=== PATIENT | female | born 1935 | race Caucasian/White ===

== ENCOUNTER 2016-09-11 08:42 | Outpatient (CLI) | payer OTHER, BC ==
[~2016-09-11 08:42] MED LIST: ATENOLOL50 MG PO; CLOPIDOGREL75 MG PO; COUMADIN1 MG PO; LISINOPRIL10 MG PO; VYTORIN1 TA1 PO
--- NOTE | 2016-09-11 11:28 | DIAGNOSTIC IMAGING REPORT ---
PROCEDURE: US KIDNEY/RENAL COMPLETE INDICATION: VAGINAL PROLAPSE,URINARY RETENTION TECHNIQUE: Transabdominal scans of the kidneys with calculation of resistive indices. Prevoid and postvoid bladder volumes were obtained. COMPARISON: CT abdomen/pelvis 03/20/2015. FINDINGS: RIGHT: Kidney measures 10.5 x 5 x 4.9 cm. Cortex measures 1 cm. No calculi or hydronephrosis. Limited of renal perfusion seen. Midpole resistive index is 0.64. LEFT: Kidney measures 11.1 x 5.5 x 4.4 cm. Cortex measures 1.1 cm. No calculi or hydronephrosis. Extrarenal pelvis. Normal resistive indices measure 0.71 or less. BLADDER: Bilateral ureteral jets visualized. Prevoid bladder volume 330 ml, postvoid volume 449 ml. IMPRESSION: 1. Bilateral renal cortical thinning suggestive of chronic medical renal disease. 2. 449 ml postvoid residual bladder volume.
== END 2016-09-11 23:00 ==
LOC: US SRH 08:42
DX: R33.9 Retention of urine, unspecified (principal); N28.89 Other specified disorders of kidney and ureter

== ENCOUNTER → 2016-09-15 | Outpatient (CLI) | payer OTHER, BC | LOC: RT SRH 14:50 | DX: Z01.818 Encounter for other preprocedural examination (principal); Z01.812 Encounter for preprocedural laboratory examination; N39.3 Stress incontinence (female) (male) | CPT/HCPCS: 90074; 90100; 94001; 94060; 95059 ==

== ENCOUNTER 2016-10-06 12:51 | Outpatient (CLI) | payer OTHER, BC | END 2016-10-06 23:00 | LOC: LAB SRH 12:51 | DX: Z51.81 Encounter for therapeutic drug level monitoring (principal); Z79.01 Long term (current) use of anticoagulants; I48.91 Unspecified atrial fibrillation | CPT/HCPCS: 90074; 94060 ==